=== PATIENT | male | born 1960 | race Asian ===

== ENCOUNTER 2017-03-11 01:42 | Observation (INO) | payer OTHER ==
[~2017-03-11] VITALS: Ht 188 cm; Wt 50.5 kg
[2017-03-11 02:04] VITALS: BP 96/69
[2017-03-11 02:26] LABS: PLATELET COUNT 169 K/uL (142-355)
[2017-03-11 02:36] LABS: POTASSIUM 3.5 mmol/L (3.6-5.2); SODIUM 136 mmol/L (136-145)
[2017-03-11 02:47] LABS: PARTIAL THROMBOPLASTIN TIME 26.7 SECONDS (24.5-33.6)
[2017-03-11 06:09] VITALS: BP 93/63; TEMP 98.4; Ht 188 cm; Wt 50.5 kg
[2017-03-11 08:16] VITALS: BP 82/52; TEMP 98.5
[2017-03-11 12:00] VITALS: BP 103/70; TEMP 98.9
[2017-03-11 16:00] VITALS: BP 102/68; TEMP 99.9
[2017-03-11 20:00] VITALS: BP 110/76; TEMP 99.5
[2017-03-12] VITALS: BP 97/74; TEMP 98.6
[2017-03-12 04:00] VITALS: BP 104/72; TEMP 97.6
[2017-03-12 05:56] LABS: POTASSIUM 3.5 mmol/L (3.6-5.2)
[2017-03-12 06:01] LABS: PLATELET COUNT 145 K/uL (142-355)
[2017-03-12 08:00] VITALS: BP 1002/67; TEMP 100
[2017-03-12 12:00] VITALS: BP 115/76; TEMP 99.8
--- NOTE | 2017-03-12 17:00 | NUR ---
IV D/C'D. D/C INSTRUCTIONS GIVEN. PT HAS NO FUTHER QUESTIONS. PT WHEELED OUT VIA W/C AT THIS TIME. PRESCRIPTION GIVEN. NO PROBLEMS NOTED.
== END 2017-03-12 17:00 | disposition home or self-care (01) ==
LOC: ED 01:42 → MED/SURG 04:00
DX: R07.89 Other chest pain (principal); D64.89 Other specified anemias; E46 Unspecified protein-calorie malnutrition
CPT/HCPCS: 36415; 36430; 80053; 80307; 80320; 81000; 82150; 82550; 82607; 82746; 83690; 83735; 84484; 85014; 85018; 85027; 85610; 85730; 86850; 86900; 86901; 86922; 87804; 93005; 96360; 96361; 96365; 96366; 99220; 99284; G0378; P9016; Q9963

== ENCOUNTER 2017-03-23 13:17 | Observation (INO) | payer OTHER ==
[~2017-03-23] VITALS: Ht 188 cm; Wt 47.4 kg
[2017-03-23 13:23] VITALS: BP 101/70; TEMP 99.3
[2017-03-23 14:55] LABS: PLATELET COUNT 178 K/uL (142-355)
[2017-03-23 15:19] LABS: POTASSIUM 3.4 mmol/L (3.6-5.2); SODIUM 134 mmol/L (136-145)
[2017-03-23 15:30] VITALS: BP 108/72
[2017-03-23 17:00] VITALS: BP 110/70
[2017-03-23 17:51] VITALS: BP 117/78; TEMP 98.8; Ht 188 cm; Wt 47.4 kg
[2017-03-23 20:23] VITALS: BP 112/78; TEMP 99.1
[2017-03-24] VITALS: BP 111/80; TEMP 99.6
[2017-03-24 04:00] VITALS: BP 109/78; TEMP 99.3
[2017-03-24 06:43] LABS: PLATELET COUNT 144 K/uL (142-355)
[2017-03-24 06:56] LABS: POTASSIUM 3.5 mmol/L (3.6-5.2)
[2017-03-24 08:00] VITALS: BP 104/76; TEMP 99.8
[2017-03-24 12:00] VITALS: BP 104/72; TEMP 99.7
== END 2017-03-24 15:20 | disposition home or self-care (01) ==
LOC: ED 13:17 → MED/SURG 16:00
PROVIDERS: ADMIT Family Medicine
DX: R53.1 Weakness (principal); R07.89 Other chest pain; B20 Human immunodeficiency virus [HIV] disease
CPT/HCPCS: 36415; 80053; 84484; 85027; 93005; 96361; 96365; 99220; 99284; G0378; J0696

== ENCOUNTER 2017-03-29 21:35 | Outpatient (CLI) | payer OTHER | END 2017-03-29 21:41 | disposition short-term general hospital (02) | LOC: AMB 21:35 | DX: R10.84 Generalized abdominal pain (principal); E86.0 Dehydration; R62.7 Adult failure to thrive | CPT/HCPCS: A0425; A0427 ==

== ENCOUNTER 2017-03-29 21:46 | Emergency (ER) | payer OTHER ==
[~2017-03-29] VITALS: Ht 188 cm; Wt 40.8 kg
[2017-03-29 22:23] LABS: PLATELET COUNT 198 K/uL (142-355)
[2017-03-29 23:02] LABS: POTASSIUM 3.7 mmol/L (3.6-5.2)
[2017-03-29 23:56] VITALS: BP 90/65; TEMP 98.4
== END 2017-03-29 23:56 | disposition home or self-care (01) ==
LOC: ED 21:46
DX: R53.1 Weakness (principal); B20 Human immunodeficiency virus [HIV] disease
CPT/HCPCS: 36415; 80053; 85027; 96360; 99283